=== PATIENT | female | born 1950 | race Caucasian/White ===

== ENCOUNTER 2020-03-14 11:29 | Emergency (ER) | payer OTHER ==
[~2020-03-14] VITALS: Ht 182.9 cm; Wt 64.9 kg
[2020-03-14 11:34] VITALS: Ht 182.9 cm; Wt 64.9 kg
[2020-03-14 12:57] VITALS: BP 185/87
== END 2020-03-14 12:57 | disposition left against medical advice (07) ==
LOC: ED 11:29
DX: Z53.21 Procedure and treatment not carried out due to patient leaving prior to being seen by health care provider (principal)

== ENCOUNTER 2020-03-14 13:53 | Emergency (ER) | payer OTHER ==
[~2020-03-14] VITALS: Ht 182.9 cm; Wt 65.8 kg
[2020-03-14 14:17] VITALS: Ht 182.9 cm; Wt 65.8 kg
[2020-03-14 16:33] VITALS: BP 111/81
== END 2020-03-14 16:33 | disposition home or self-care (01) ==
LOC: ED 13:53
DX: S61.210A Laceration without foreign body of right index finger without damage to nail, initial encounter (principal); Z88.0 Allergy status to penicillin; Z90.711 Acquired absence of uterus with remaining cervical stump; X58.XXXA Exposure to other specified factors, initial encounter; Y93.89 Activity, other specified; Y92.89 Other specified places as the place of occurrence of the external cause; Y99.8 Other external cause status